=== PATIENT | female | born 1950 | race Caucasian/White ===

== ENCOUNTER → 2016-09-11 | Outpatient (CLI) | payer OTHER ==
[~2016-09-11] MED LIST: ATIVAN PO; IBUPROFEN PO; KEFLEX PO; NABUMETONE PO; PHENERGAN PO; PHENERGAN PR; PROTONIX PO; TYLENOL #3 PO
--- NOTE | ~2016-09-11 | MY29 ---
[facility] A Service [facility] RADIOLOGY TEXT RESULTS PATIENT: ELHAM CARVAJAL LOCATION: [facility] : 54 UNIT #: [id number] AGE: [address]: Pablo Stratton MD SEX: F ORDER DR: [id number] [facility] [address] [place], [place] [address] [id number] O MR#: [id number] Acc #: [id number] NAME: ELHAM CARVAJAL : 1950 SEX: F STUDY DATE/TIME: 09/11/2016 10:13 UNIT: [facility] ROOM: STUDY DESCRIPTION: MY EMMANUEL SCREENING W/ CAD BILAT Attending Physician: Pablo Stratton M.D. Ordering Physician: Pablo Stratton M.D. Primary Care Physician: Gurdeep Benavides M.D. MEDICAL IMAGING REPORT This report is preliminary unless electronic signature is present EXAM Digital screening mammogram, 09/11/2016, [facility]. HISTORY 65-year-old woman no risk elevation. Annual screen. COMPARISON Mammograms date to 05/11/2006 with most recent 09/08/2015. FINDINGS Digital imaging of each breast was completed utilizing standard craniocaudal and mediolateral-oblique projections. Review and interpretation of digital mammograms include a second review in conjunction with FDA-approved CAD device. There is an overall increase in the parenchymal presentation bilaterally with a generalized fibronodular pattern in each breast. There are no breast masses and I see no asymmetry in the parenchymal presentation. There are no suspicious microcalcifications and I see no architectural disturbance. IMPRESSION Benign mammogram. One-year followup recommended. Patients over the age of 40 are entered into a reminder system with target due date for the next mammogram. A result letter will also be sent to the patient. BIRADS: 2 Benign finding Dictated by... Raudel Walters M.D. [facility] A Service [facility] RADIOLOGY TEXT RESULTS PATIENT: ELHAM CARVAJAL LOCATION: [facility] : 54 UNIT #: [id number] AGE: [address]: Pablo Stratton MD SEX: F ORDER DR: THIS IS AN ELECTRONICALLY VERIFIED REPORT Raudel Walters M.D. at 09/11/2016 12:39 PM Katelyn TD: 09/11/2016 12:21 JOB #: [id number] MEDICAL IMAGING REPORT Page 1 of 1 COPY
== END | disposition home or self-care (01) ==
LOC: CWCC 09:47
DX: Z12.31 Encounter for screening mammogram for malignant neoplasm of breast (principal)
CPT/HCPCS: G0202